=== PATIENT | female | born 1955 | race Caucasian/White ===

== ENCOUNTER 2016-03-26 22:22 | Emergency (ER) | payer BC, OTHER ==
[~2016-03-26] VITALS: Ht 165.1 cm; Wt 69.0 kg
[~2016-03-26 22:22] MED LIST: BACT800T5 PO; DICL75 PO; HYDR15TA PO; NEXI40CA PO
[2016-03-26 22:25] VITALS: BP 142/81; PULSE 102; RESP 20; TEMP 99.6; O2SAT 96
[2016-03-26] MEDS ORDERED: DICL75TA PO (22:50)
[2016-03-26] MEDS ORDERED: PLAQ200T PO (22:50)
[2016-03-26] MEDS ORDERED: NEXI40CA PO (22:50)
--- NOTE | 2016-03-26 22:52 | PD ---
HPI Chief Complaint: Cold / Flu Symptoms Time Seen by Provider: 22:40 Travel History International Travel<30 days: No Contact w/Intl Traveler<30days: No Traveled to known affect area: No History of Present Illness HPI The patient was seen and examined in the presence of the nurse. This patient complains of cough and congestion and runny nose and general malaise. Severity of symptoms is moderate. She saw her primary physician a few days ago and was started on Zithromax and prednisone and albuterol inhaler. She is a smoker. [facility] Past Medical History Arthritis: Yes Autoimmune Disease: Yes (SLE) Diminished Hearing: No GERD: Yes (TREATED FOR HEARTBURN) Immunizations Current: Yes Ovarian Cysts: Yes Tubal Ligation: Yes Past Surgical History Abdominal Surgery: Yes (C SECTIONS, AND HERNIA REPAIR) Body Medical Devices: LUPUS Social History Alcohol Use: Yes (OCCASIONALLY, BEER) Tobacco Use: Yes (CIGARETTES, 2 PACKS DAILY, 30 YEARS) Substance Use: No Allergies-Medications (Allergen,Severity, Reaction): Coded Allergies: Codeine (Verified Adverse Reaction, Intermediate, nausea/vomiting, 03/26/16) Reported Meds & Prescriptions Reported Meds & Active Scripts Active Bactrim DS (Sulfamethoxazole-Trimethoprim DS) 1 Tab Tab 1 Tab PO BID 10 Days Reported Diclofenac Sodium 75 Mg Tab 75 Mg PO BID Nexium (Esomeprazole Magnesium) Esomeprazole Magnesium 40 mg Cap 1 Cap PO DAILY Plaquenil (Hydroxychloroquine Sulfate) 200 Mg Tab 200 Mg PO BID Review of Systems General / Constitutional: No: Fever HENT: Positive: Rhinorrhea Respiratory: Positive: Cough Gastrointestinal: No: Vomiting Physical Exam Narrative GENERAL: Well-nourished, well-developed patient in no apparent distress. SKIN: Warm and dry. HEAD: Atraumatic. Normocephalic. EYES: Pupils equal and round. No scleral icterus. No injection or drainage. ENT: No nasal bleeding or discharge. Mucous membranes pink and moist. NECK: Trachea midline. No JVD. CARDIOVASCULAR: Regular rate and rhythm. No murmur appreciated. RESPIRATORY: No accessory muscle use. Some rhonchi and expiratory wheeze. Breath sounds equal bilaterally. GASTROINTESTINAL: Abdomen soft, non-tender, nondistended. Hepatic and splenic margins not palpable. MUSCULOSKELETAL: No obvious deformities. No clubbing. No cyanosis. No edema. NEUROLOGICAL: Awake and alert. No obvious cranial nerve deficits. Motor grossly within normal limits. Normal speech. PSYCHIATRIC: Appropriate mood and affect; insight and judgment normal. Data Data Last Documented VS Vital Signs Date Time Temp Pulse Resp B/P Pulse Ox O2 Delivery O2 Flow Rate FiO2 03/26/16 22:25 99.6 102 20 142/81 96 MDM Medical Decision Making Medical Screen Exam Complete: Yes Emergency Medical Condition: Yes Medical Record Reviewed: Yes Differential Diagnosis Bronchitis, pneumonia, URI Narrative Course I have reviewed the patient's electronic medical record. Presentation seems most consistent with an acute viral bronchitis. Supportive care discussed. I refilled her albuterol nebulizer liquid. Encouraged her to stop smoking. Already taking prednisone and Zithromax Diagnosis Primary Impression: Acute viral bronchitis Additional Instructions: The patient was advised to follow up with their physician and return if they worsen. Med/Other Pt SpecificInfo: Prescription(s) given Disposition: 01 DISCHARGE HOME Condition: Stable Sedrick Felipe MD Mar 26, 2016 22:52
[2016-03-26] MEDS ORDERED: ALBU0.08 NEB (22:53)
[2016-03-26] MEDS ORDERED: RESP: ALBUTEROL 2.5 MG/IPRATROPIUM 0.5 MG NEB (SCH) NEB ONE ×2 (23:00→23:15)
[2016-08-01] MEDS ORDERED: PRED5TAB PO (10:22)
== END 2016-03-26 23:43 | disposition home or self-care (01) ==
LOC: PHED 22:22
DX: J20.8 Acute bronchitis due to other specified organisms (principal); M32.9 Systemic lupus erythematosus, unspecified; K21.9 Gastro-esophageal reflux disease without esophagitis; F17.210 Nicotine dependence, cigarettes, uncomplicated
CPT/HCPCS: 94640; 94664; 99283

== ENCOUNTER → 2016-08-01 | Outpatient (CLI) | payer OTHER ==
[~2016-08-01] MED LIST changes: +ALBU0.08 NEB; -BACT800T5 PO; -DICL75 PO; +DICL75TA PO; -HYDR15TA PO; +PLAQ200T PO; +PRED5TAB PO
[2016-08-01 11:51] LABS: HEMATOCRIT 47.1 % (35.0-46.0); MEAN CELL VOLUME 94.3 FL (80.0-100.0); MEAN CORPUSCULAR HEMOGLOBIN 30.4 PG (27.0-34.0); MEAN CORPUSCULAR HGB CONC 32.2 % (32.0-36.0); PLATELET COUNT 243 TH/MM3 (150-450); RED CELL DISTRIBUTION WIDTH 14.9 % (11.6-17.2); REVIEW FLAG FINAL; WHITE BLOOD COUNT 9.8 TH/MM3 (4.0-11.0)
--- NOTE | 2016-08-01 18:20 | EKG ---
Date Performed: 08/01/2016 Time Performed: 10:15:19 PTAGE: 61 years EKG: Sinus rhythm NORMAL ECG NO PREVIOUS TRACING DOCTOR: Piyush Rizzo Interpretating Date/Time 08/01/2016 18:19:50
== END ==
LOC: CPRE 09:52
PROVIDERS: ATTEND Specialist
DX: Z01.810 Encounter for preprocedural cardiovascular examination (principal); Z01.812 Encounter for preprocedural laboratory examination; J32.8 Other chronic sinusitis
CPT/HCPCS: 36415; 85027; 93005

== ENCOUNTER → 2016-08-03 | Day surgery (SDC) | payer OTHER ==
--- NOTE | 2016-08-02 19:31 | MH ---
cc: YESICA SCHULTE DATE OF ADMISSION 08/03/2016 ADMITTING DIAGNOSIS A 61-year-old female with chronic sinusitis and nasal obstruction for nasal sinus surgery. PAST MEDICAL HISTORY Unremarkable. PAST SURGICAL HISTORY Unremarkable. REVIEW OF SYSTEMS Unremarkable. FAMILY HISTORY AND SOCIAL HISTORY Unremarkable. PHYSICAL EXAMINATION GENERAL: A well-appearing patient in no acute distress noted. HEENT: Exam reveals septal deviation, turbinate hypertrophy. Significant mucopurulent secretion. Lungs: Clear. CARDIOVASCULAR: Regular rate and rhythm. ABDOMEN: Soft and nontender. EXTREMITIES: Without cyanosis, clubbing or edema. NEUROLOGIC: Alert, oriented, nonfocal neurologic exam. IMPRESSION A patient with chronic sinusitis and nasal obstruction for nasal sinus surgery. The patient instructed method of surgery and possible complication include anesthetic complications cardiac difficulty, pulmonary difficulty, stroke, or even . Surgical complications bleeding, infection, risk of injury to orbit including blindness and diplopia, injury to brain including CSF leak, meningitis, brain abscess or even , injury to septum with decreased sense of smell, septal perforation and significant hemorrhage with packing and transfusion requirement. The patient appeared to agree, accept and understand above-mentioned risks and benefits. In addition no guarantees or warranties regarding outcome were given. We will therefore proceed with surgery. MD VICTORIANO Wilson/FERDINAND /5:22 PM /7:27 PM
[~2016-08-03] VITALS: Ht 167.6 cm; Wt 71.1 kg
[~2016-08-03] MED LIST changes: +*ONDANSETRON 4 MG VIAL PERIprocedural Use ONLY ONE; +*PROMETHAZINE 25 MG/ML VIAL PERIprocedural use ONLY ONE; +ACETAMINOPHEN 1000 MG/100 ML VIAL IV ONE; +ACETAMINOPHEN/HYDROcodone 325 MG/7.5 MG TAB PO PRN; +APREPITANT 40 MG CAP ONE; +CHLORHEXIDINE GLUCONATE 2 % 1 PACK (2 CLOTHS) TOPICAL PRN; +DEXAMETHASONE SOD PHOS 4 MG/ML VIAL ONE; +DO NOT ADM ANY ANTICOAGULANT DRUGS PRN; +EPINEPHrine HCL (1:1000) 30 MG/30 ML VIAL ONE; +FAMOTIDINE 20 MG/2 ML VIAL ONE; +INSULIN HUMAN REGULAR 1,000 UNITS/10 ML VIAL SQ PRN; +LACTATED RINGER'S 1000 ML IV PRN; +LIDOCAINE HCL 1% 50 ML VIAL ONE; +METOPROLOL TARTRATE 25 MG TAB PO PRN; +MIDAZOLAM HCL 2 MG/2 ML VIAL ONE; +MORPHINE SULFATE 4 MG/ML INJ IV PRN; +ONDANSETRON HCL 4 MG/2 ML VIAL IV PUSH PRN; +ONDANSETRON HCL 4 MG/2 ML VIAL ONE; -PLAQ200T PO; +POVIDONE IODINE 5% (ANTISEPSIS KIT) 4 APPLICATIONS EACH NARE PRN; +PROPOFOL 200 MG/20 ML AMP IV ONE; +SODIUM CHLORID 0.9% 500 ML IV PRN; +ePHEDrine/NS 25 MG/5 ML SYR IV ONE; +fentaNYL CITRATE 250 MCG/5 ML AMP ONE
[2016-08-03 07:13] VITALS: BP 109/55; PULSE 72; RESP 18; TEMP 97.1; O2SAT 95
[2016-08-03 11:08] VITALS: BP 125/60; PULSE 80; RESP 20; TEMP 97.5; O2SAT 98
--- NOTE | 2016-08-04 14:25 | MP ---
cc: YESICA SCHULTE DATE OF SURGERY: 08/03/2016 PREOPERATIVE DIAGNOSIS Nasal obstruction and chronic sinusitis. POSTOPERATIVE DIAGNOSIS Nasal obstruction and chronic sinusitis. PROCEDURE Open septal reconstruction. Left endoscopic frontal sinusotomy. Right endoscopic frontal sinusotomy. Left endoscopic anterior-posterior ethmoidectomy. Right endoscopic anterior-posterior ethmoidectomy. Left endoscopic maxillary antrostomy with removal of tissue. Right endoscopic maxillary antrostomy with removal of tissue. Left endoscopic sphenoidotomy with removal of tissue. Right endoscopic sphenoidotomy with removal of tissue. Left and right inferior turbinectomy, submucous resection. ANESTHESIA General. ESTIMATED BLOOD LOSS 30 cc. COMPLICATIONS No complications. OPERATING SURGEON Dr. Schulte OPERATION The patient was prepped and draped in the usual fashion. 1% Xylocaine was injected into sphenoid recess, superior meatus, septum, turbinates inferiorly, middle turbinates and middle meatus. Under endoscopic visualization the balloon apparatus was placed in the frontal sinus recess on the right side. A guidewire was advanced into the frontal sinus and confirmed by light guide and the balloon advanced and dilated to 8 atmospheres x2. In a similar fashion on the left side the frontal sinus was dilated to 2 atmospheres x2. Using the maxillary attachment the maxillary sinus was dilated in a similar fashion on both sides and the sphenoid recess was dilated bilaterally also with balloon under endoscopic visualization. Once this was achieved the microdebrider was used to perform the remainder of the uncinectomy in the frontal sinus recess dissection and the anterior, posterior ethmoidectomy performed with the microdebrider on the left side taking care not to injure orbit or cranial vault. Polypoid tissue was removed from the antrum as well. Once this was achieved, on the opposite side the anterior, posterior ethmoidectomy performed with the microdebrider on the left side as well. The frontal sinus recess dissection was performed and also the maxillary antrostomy with removal of tissue. Once this was achieved the sphenoidotomy was enlarged with the microdebrider and minimal polypoid tissue removed from both sides. Inferior turbinate submucosal vaporization was performed with the Coblator, multiple probe insertions bilaterally on either side. A mucoperichondrial incision and resection was performed of the remaining septum, bone and cartilage under direct visualization significantly improving the nasal airway and reducing the nasal fracture. No active bleeding was noted. The patient tolerated the procedure well. MD VICTORIANO Wilson/AMIRA /9:33 AM /2:20 PM
== END | disposition home or self-care (01) ==
LOC: HSDC 06:31
PROVIDERS: ATTEND Specialist
DX: J32.9 Chronic sinusitis, unspecified (principal); J34.89 Other specified disorders of nose and nasal sinuses; F17.200 Nicotine dependence, unspecified, uncomplicated; Z88.5 Allergy status to narcotic agent
CPT/HCPCS: 30140; 30520; 31255; 31267; 31276; 31288; J0131; J0171; J1100; J2250; J2405; J2550; J3010; J8501